=== PATIENT | female | born 1965 | race Caucasian/White ===

== ENCOUNTER 2020-02-21 01:56 | Emergency (ER) | payer BC, MEDICAID ==
[2020-02-21] MEDS ORDERED: Ondansetron ODT TAB* 4 MG SL ONE (02:14)
[2020-02-21] MEDS ORDERED: LORazepam TAB(*) 1 MG PO ONE (02:14)
--- NOTE | 2020-02-21 02:18 | ED ---
Abdominal Pain/Female - HPI Summary HPI Summary: This pt is a 54 Y/O F presenting to [facility] with a CC of N/V that began around 0100 this date. She states that she was at home after eating [employer]. She states that after eating she developed tremors, neck stiffness, abdominal pain and a fast heart rate.The abdominal pain and neck pain is rated a 7/10 in severity. She had a second episode around 0130 which woke her up from sleep. She states that she has no aggravating or alleviating factors. She denies any fevers, cough, SOB, headaches, and myalgia. She states that she has a PMHx of Asthma. - History of Current Complaint Chief Complaint: EDNauseaVomitDiarrh Stated Complaint: NAUSEA PER PT Time Seen by Provider: 02/21/20 02:04 Hx Obtained From: Patient ?: No Onset/Duration: Sudden Onset, Still Present Timing: Constant Severity Initially: Moderate Severity Currently: Moderate Pain Intensity: 7 Pain Scale Used: 0-10 Numeric Location: Diffuse Radiates: No Aggravating Factor(s): Nothing Alleviating Factor(s): Nothing Associated Signs and Symptoms: Positive: Negative - SOB, headaches, and myalgia. , Nausea, Vomiting. Negative: Fever, Cough Allergies/Adverse Reactions: Allergies Allergy/AdvReac Type Severity Reaction Status Date / Time latex Allergy Hives Verified 02/21/20 02:03 naproxen Allergy Hives Verified 02/12/20 18:47 Home Medications: Home Medications Albuterol 2.5MG/3ML (0.083%)* [Ventolin 2.5 MG/3 ML NEB.DENISA*] 2.5 mg INH Q6H PRN 02/12/20 [History Confirmed 02/12/20] Albuterol inh POWDER (NF) [Proair Respiclick] 1 puff INH Q6HR PRN 02/12/20 [ History Confirmed 02/12/20] Fluticasone NASAL SPRAY 50MCG* [Flonase NASAL SPRAY 50MCG*] 2 spray BOTH NARES DAILY 02/12/20 [History Confirmed 02/12/20] Fluticasone-Salmeterol 250-50* [Advair Diskus 250-50*] 1 puff INH BID 02/12/20 [ History Confirmed 02/12/20] LoraTADine TAB(NF) [Claritin 10 MG TAB(NF)] 10 mg PO DAILY 02/12/20 [History Confirmed 02/12/20] Montelukast Sodium TAB* [Singulair TAB*] 10 mg PO DAILY 02/12/20 [History Confirmed 02/12/20] Omeprazole CAP (NF) [Prilosec CAP* 20 MG] 20 mg PO DAILY 02/12/20 [History Confirmed 02/12/20] Simvastatin TAB(NF) [Zocor(NF)] 20 mg PO DAILY 02/12/20 [History Confirmed 02/11] Umeclidinium 62.5 MDI(NF) [Incruse ELLIPTA MDI (NF)] 1 puff INH BID 02/12/20 [ History Confirmed 02/12/20] metFORMIN* [Glucophage 500 MG TAB *] 500 mg PO DAILY 02/12/20 [History Confirmed 02/12/20] predniSONE 10 mg TAB [Deltasone 10 MG TAB*] 10 mg PO DAILY 02/12/20 [History Confirmed 02/12/20] Ondansetron ODT TAB* [Zofran 4 MG Odt TAB*] 8 mg PO Q6H PRN #10 tab.odt [Rx] PMH/Surg Hx/FS Hx/Imm Hx Previously Healthy: Yes Endocrine/Hematology History: Denies: Hx Diabetes Cardiovascular History: Denies: Hx Hypertension Respiratory History: Reports: Hx Asthma Sensory History: Reports: Hx Contacts or Glasses Opthamlomology History: Reports: Hx Contacts or Glasses - Cancer History Hx Chemotherapy: No Hx Radiation Therapy: No - Surgical History Surgical History: Yes Surgery Procedure, Year, and Place: right shoulder. tubal ligation - Immunization History Immunizations Up to Date: Yes Infectious Disease History: No Infectious Disease History: Denies: Traveled Outside the [place] in Last 30 Days - Family History Known Family History: Positive: Cardiac Disease, Diabetes, Other - angina mother , cancer father - Social History Occupation: Employed Full-time Lives: Alone Alcohol Use: None Hx Substance Use: Yes Substance Use Type: Reports: Excessive Caffeine - soda Hx Tobacco Use: Yes Smoking Status (MU): Former Smoker Review of Systems Negative: Fever Negative: Shortness Of Breath, Cough Positive: Abdominal Pain, Vomiting, Nausea Negative: Myalgia Negative: Headache All Other Systems Reviewed And Are Negative: Yes Physical Exam - Summary Physical Exam Summary: Appearance: Well-appearing, Well-nourished, lying in bed comfortably Skin: Warm, dry, no obvious rash Eyes: sclera anicteric, no conjunctival pallor ENT: mucous membranes moist, pharynx appears normal Neck: Supple, nontender Respiratory: Clear to auscultation, no signs of respiratory distress Cardiovascular: Normal S1, S2. No murmurs. Normal distal pulses in tibial and radial bilaterally. Abdomen: Soft, nontender, normal active bowel sounds present Musculoskeletal: Normal, Strength/ROM Intact Neurological: A&Ox3, awake and alert, mentation is normal, speech is fluent and appropriate Psychiatric: affect is normal, does not appear anxious or depressed Triage Information Reviewed: Yes Vital Signs On Initial Exam: Initial Vitals Temp Pulse Resp BP Pulse Ox 97.5 F 82 16 157/96 98 02/21/20 01:58 02/21/20 01:58 02/21/20 01:58 02/21/20 01:58 02/21/20 01:58 Vital Signs Reviewed: Yes Procedures - Sedation Patient Received Moderate/Deep Sedation with Procedure: No Diagnostics - Vital Signs Vital Signs Temp Pulse Resp BP Pulse Ox 02/21/20 01:58 97.5 F 82 16 157/96 98 - Laboratory Lab Statement: Any lab studies that have been ordered have been reviewed, and results considered in the medical decision making process. Abdominal Pain Fem Course/Dx - Course Course Of Treatment: This pt is a 54 Y/O F presenting to [facility] with a CC of N/V that began around 0100 this date. She states that she was at home after eating [employer]. She states that after eating she developed tremors, neck stiffness, and a fast heart rate. She had a second factor around 0130 which woke her up from sleep. Her PE has no acute abnormalities. She received ativan and Zofran during her ED course. She will be diagnosed with nausea and vomiting and discharged home. - Diagnoses Provider Diagnoses: N&V (nausea and vomiting) - Critical Care Time Critical Care Statement: Critical care time is provided exclusive of any time spent performing procedures. Discharge ED - Sign-Out/Discharge Documenting (check all that apply): Patient Departure - discharge - Discharge Plan Condition: Good Disposition: HOME Prescriptions: Ondansetron ODT TAB* [Zofran 4 MG Odt TAB*] 8 mg PO Q6H PRN #10 tab.odt PRN Reason: Nausea Patient Education Materials: Acute Nausea and Vomiting (ED) Referrals: Brittni Werner MD [Primary Care Provider] - - Billing Disposition and Condition Condition: GOOD Disposition: Home - Attestation Statements Document Initiated by Scribe: Yes Documenting Scribe: Zain Estevez Provider For Whom Scribe is Documenting (Include Credential): Shahab Loza MD Scribe Attestation: Zain Montiel, scribed for Shahab Loza MD on 02/24/20 at 0248. Scribe Documentation Reviewed: Yes Provider Attestation: The documentation as recorded by the Zain rivera accurately reflects the service I personally performed and the decisions made by Shahab carrero MD Status of Scribe Document: Viewed
[2020-02-21 02:38] VITALS: BP 152/96
== END 2020-02-21 02:36 | disposition home or self-care (01) ==
LOC: ED 01:56
DX: R11.2 Nausea with vomiting, unspecified (principal); R10.9 Unspecified abdominal pain; Z87.891 Personal history of nicotine dependence; Z79.52 Long term (current) use of systemic steroids; Z79.84 Long term (current) use of oral hypoglycemic drugs; Z79.899 Other long term (current) drug therapy; Z91.040 Latex allergy status
CPT/HCPCS: 99282; A9270-GY

== ENCOUNTER 2020-03-07 02:39 | Emergency (ER) | payer BC, MEDICAID ==
[2020-03-07] MEDS ORDERED: NS 0.9% 1000 ml BAG 1,000 ML IV ONE (02:42)
[2020-03-07] MEDS ORDERED: Ondansetron 4 mg VIAL 2 MG/ML 2 ml VIAL IV ONE (02:42)
[2020-03-07] MEDS ORDERED: Ketorolac *IM* INJ 60 MG/2 ML VIAL IM ONE (02:56)
[2020-03-07 03:00] VITALS: BP 160/92
[2020-03-07] MEDS ORDERED: Lidocaine PATCH 5% PATCH TRANSDERM SCH (03:30)
[2020-03-07] MEDS ORDERED: Lidocaine Patch REMOVE PATCH SCH (21:00)
== END 2020-03-07 04:17 | disposition home or self-care (01) ==
LOC: ED 02:39